=== PATIENT | male | born 1965 | race American Indian/Alaskan Native ===

== ENCOUNTER 2018-09-12 03:19 | Emergency (ER) | payer MEDICARE | END 2018-09-12 04:00 | disposition left against medical advice (07) | LOC: ED 03:19 ==

== ENCOUNTER 2020-06-02 01:15 | Emergency (ER) | payer MEDICARE ==
[2020-06-02 02:20] VITALS: BP 168/88
[2020-06-02 03:06] LABS: Bilirubin,Urine NEG (Negative); Blood,Urine NEG (Negative); Color,Urine Yellow (Yellow); Mucus,Urine FEW /HPF; Protein,Urine <15 mg/dL mg/dL (Negative); RBC,Urine < 1.0 /HPF (0.0-6.0); Urobilinogen,Urine < 2.0 mg/dL (<2.0)
[2020-06-02 03:12] LABS: Amphetamine Screen,Urine PRESUMPTIVE NEGATIVE; Benzodiazepines Screen,Urine PRESUMPTIVE NEGATIVE; Cannabinoid Screen,Urine PRESUMPTIVE NEGATIVE; Cocaine Screen,Urine PRESUMPTIVE NEGATIVE; Methadone Screen,Urine PRESUMPTIVE NEGATIVE; Opiate Screen,Urine PRESUMPTIVE NEGATIVE
[2020-06-02 03:34] LABS: Basophils % (Auto) 0.5 % (0.0-1.8); Eosinophils # (Auto) 0.1 K/mm3 (0.0-0.4); Eosinophils % (Auto) 0.8 % (0.0-4.3); Hematocrit 40.9 % (35.5-45.6); Hemoglobin 13.8 gm/dl (11.8-15.2); Lymphocytes # (Auto) 1.7 K/mm3 (1.2-5.4); Lymphocytes % (Auto) 22.2 % (13.4-35.0); Mean Corpuscular HGB Conc 34 % (32-34); Mean Corpuscular Volume 90 fl (84-94); Monocytes # (Auto) 0.6 K/mm3 (0.0-0.8); Monocytes % (Auto) 8.3 % (0.0-7.3); Platelet Count 194 K/mm3 (140-440); Red Blood Count 4.52 M/mm3 (3.65-5.03); Red Cell Distribution Width 14.7 % (13.2-15.2)
[2020-06-02 03:53] LABS: BUN/Creatinine Ratio 12; Blood Urea Nitrogen 13 mg/dL (9-20); Calcium 9.6 mg/dL (8.4-10.2); Hemolysis Index 10
== END 2020-06-02 06:04 | disposition left against medical advice (07) ==
LOC: ED 01:15
DX: Z00.8 Encounter for other general examination (principal); Z53.21 Procedure and treatment not carried out due to patient leaving prior to being seen by health care provider
CPT/HCPCS: 36415; 80048; 80307; 80320; 81001; 85025; G0480

== ENCOUNTER 2020-06-04 10:08 | Emergency (ER) | payer MEDICARE ==
[2020-06-04] MEDS ORDERED: LORazepam 2 MG/ML VIAL IM ONE (10:49)
[2020-06-04] MEDS ORDERED: ZIPRASIDONE MESYLATE 20 MG VIAL IM ONE (10:49)
--- NOTE | 2020-06-04 10:55 | Emergency Department Report ---
ED Psych HPI - General Chief Complaint: Psych Stated Complaint: HYPERTENSION Time Seen by Provider: 06/04/20 10:37 Source: patient, EMS Mode of arrival: Stretcher - History of Present Illness Initial Comments: 55-year-old male states he has been noncompliant with his medication for several months. He mentioned something about getting out of [facility] at triage. He stated "I just want to harm enemies". He told me that he is tired of seeing demons. He stated that he wanted to go to the [facility] but he knew that "every hospital has its psych floor, so it does not matter". He then informed me that he would need me to show him my "certificate" before I "used that stethoscope". Patient is considerably paranoid. He is apparently homeless. He is not providing much other information. He states his previous medications were "Haldol, Resporal and lithium". He is placed on a 1013. Complaint: other (Homicidal statements) -: unknown Associated Psychiatric Symptoms: homicidal ideation, auditory hallucinations, delusions History of same: Yes Quality: intermittent Improves With: none Worsens With: medication (Presumably) Associated Symptoms: other (Had no physical complaints) Treatments Prior to Arrival: none If Self Harm: other - Related Data Home Medications Medication Instructions Recorded Confirmed Last Taken [place] 3 mg PO DAILY 06/04/20 06/04/20 Unknown Prolixin 2 mg PO DAILY 06/04/20 06/04/20 Unknown haloperidoL [Haldol] 2 mg PO DAILY 06/04/20 06/04/20 Unknown Allergies Allergy/AdvReac Type Severity Reaction Status Date / Time No Known Allergies Allergy Unverified 09/12/18 03:50 ED Review of Systems ROS: Stated complaint: HYPERTENSION Other details as noted in HPI Comment: Unobtainable due to pts medical conditions (No active physical complaints) ED Past Medical Hx - Past Medical History Previous Medical History?: Yes Hx Hypertension: Yes Hx Psychiatric Treatment: Yes (Bipolar, Schizophrenia) - Surgical History Past Surgical History?: No - Social History Smoking Status: Current Every Day Smoker Substance Use Type: Alcohol, Marijuana - Medications Home Medications: Home Medications Medication Instructions Recorded Confirmed Last Taken Type [place] 3 mg PO DAILY 06/04/20 06/04/20 Unknown History Prolixin 2 mg PO DAILY 06/04/20 06/04/20 Unknown History haloperidoL [Haldol] 2 mg PO DAILY 06/04/20 06/04/20 Unknown History ED Physical Exam - General Limitations: Other General appearance: other (Eating a candy bar in no distress) - Head Head exam: Present: atraumatic - Eye Eye exam: Present: PERRL, EOMI. Absent: scleral icterus - ENT ENT exam: Present: mucous membranes moist - Neck Neck exam: Present: normal inspection - Respiratory Respiratory exam: Present: other (Normal work of breathing) - GI/Abdominal GI/Abdominal exam: Absent: distended - Extremities Exam Extremities exam: Present: normal inspection - Back Exam Back exam: Present: normal inspection - Neurological Exam Neurological exam: Present: alert, CN II-XII intact (On observational exam). Absent: motor sensory deficit - Psychiatric Psychiatric exam: Present: agitated, anxious - Skin Skin exam: Present: warm, dry, intact, normal color. Absent: rash ED Course Vital Signs 06/04/20 10:27 Temperature 97.3 F L Pulse Rate 66 Respiratory 16 Rate Blood Pressure 160/78 [Left] O2 Sat by Pulse 100 Oximetry ED Medical Decision Making - Lab Data Result diagrams: 06/04/20 11:00 06/04/20 11:00 Laboratory Results - last 24 hr 06/04/20 06/04/20 06/04/20 11:00 11:00 11:00 WBC 4.9 RBC 4.55 Hgb 14.2 Hct 42.0 MCV 92 MCH 31 MCHC 34 RDW 14.5 Plt Count 185 Lymph % (Auto) 28.0 [place] % (Auto) 8.2 H Eos % (Auto) 2.6 Baso % (Auto) 1.0 Lymph # (Auto) 1.4 [place]yer # (Auto) 0.4 Eos # (Auto) 0.1 Baso # (Auto) 0.0 Seg Neutrophils % 60.2 Seg Neutrophils # 3.0 Sodium 144 Potassium 4.2 Chloride 106.3 Carbon Dioxide 29 Anion Gap 13 BUN 15 Creatinine 1.0 Estimated GFR > 60 BUN/Creatinine Ratio 15 Glucose 85 Calcium 9.3 Total Creatine Kinase CK-MB (CK-2) CK-MB (CK-2) Rel Index Urine Color Urine Turbidity Urine pH Ur Specific Plaza Urine Protein Urine Glucose (UA) Urine Ketones Urine Blood Urine Nitrite Urine Bilirubin Urine Urobilinogen Ur Leukocyte Esterase Urine WBC (Auto) Urine RBC (Auto) U Epithel Cells (Auto) Urine Mucus Salicylates < 0.3 L Urine Opiates Screen Urine Methadone Screen Acetaminophen Ur Barbiturates Screen Ur Phencyclidine Scrn Ur Amphetamines Screen U Benzodiazepines Scrn Urine Cocaine Screen U Marijuana (THC) Screen Drugs of Abuse Note 06/04/20 06/04/20 06/04/20 11:00 11:00 Unknown WBC RBC Hgb Hct MCV MCH MCHC RDW Plt Count Lymph % (Auto) Sawyer % (Auto) Eos % (Auto) Baso % (Auto) Lymph # (Auto) Sawyer # (Auto) Eos # (Auto) Baso # (Auto) Seg Neutrophils % Seg Neutrophils # Sodium Potassium Chloride Carbon Dioxide Anion Gap BUN Creatinine Estimated GFR BUN/Creatinine Ratio Glucose Calcium Total Creatine Kinase 392 H CK-MB (CK-2) 4.0 CK-MB (CK-2) Rel Index 1.0 Urine Color Yellow Urine Turbidity Clear Urine pH 5.0 Ur [address] Plaza 1.028 Urine Protein 30 mg/dl Urine Glucose (UA) Neg Urine Ketones Neg Urine Blood Neg Urine Nitrite Neg Urine Bilirubin Neg Urine Urobilinogen 4.0 Ur Leukocyte Esterase Neg Urine WBC (Auto) 1.0 Urine RBC (Auto) 4.0 U Epithel Cells (Auto) 2.0 Urine Mucus Few Salicylates Urine Opiates Screen Urine Methadone Screen Acetaminophen 5.0 L Ur Barbiturates Screen Ur Phencyclidine Scrn Ur Amphetamines Screen U Benzodiazepines Scrn Urine Cocaine Screen U Marijuana (THC) Screen Drugs of Abuse Note 06/04/20 Unknown WBC RBC Hgb Hct MCV MCH MCHC RDW Plt Count Lymph % (Auto) [place]yer % (Auto) Eos % (Auto) Baso % (Auto) Lymph # (Auto) [place]yer # (Auto) Eos # (Auto) Baso # (Auto) Seg Neutrophils % Seg Neutrophils # Sodium Potassium Chloride Carbon Dioxide Anion Gap BUN Creatinine Estimated GFR BUN/Creatinine Ratio Glucose Calcium Total Creatine Kinase CK-MB (CK-2) CK-MB (CK-2) Rel Index Urine Color Urine Turbidity Urine pH Ur Specific Plaza Urine Protein Urine Glucose (UA) Urine Ketones Urine Blood Urine Nitrite Urine Bilirubin Urine Urobilinogen Ur Leukocyte Esterase Urine WBC (Auto) Urine RBC (Auto) U Epithel Cells (Auto) Urine Mucus Salicylates Urine Opiates Screen Negative Urine Methadone Screen Negative Acetaminophen Ur Barbiturates Screen Negative Ur Phencyclidine Scrn Negative Ur Amphetamines Screen Negative U Benzodiazepines Scrn Negative Urine Cocaine Screen Negative U Marijuana (THC) Screen Negative Drugs of Abuse Note Disclamer Critical care attestation.: If time is entered above; I have spent that time in minutes in the direct care of this critically ill patient, excluding procedure time. ED Disposition Clinical Impression: Acute psychosis, Medical clearance for psychiatric admission Disposition: DC/TX-65 PSY HOSP/PSY UNIT Is pt being admited?: No Does the pt Need Aspirin: No Condition: Stable Time of Disposition: 13:05
[2020-06-04 11:12] LABS: Bilirubin,Urine NEG (Negative); Blood,Urine NEG (Negative); Color,Urine Yellow (Yellow); Mucus,Urine FEW /HPF
[2020-06-04 11:26] LABS: Eosinophils # (Auto) 0.1 K/mm3 (0.0-0.4); Eosinophils % (Auto) 2.6 % (0.0-4.3); Hemoglobin 14.2 gm/dl (11.8-15.2); Lymphocytes # (Auto) 1.4 K/mm3 (1.2-5.4); Mean Corpuscular HGB Conc 34 % (32-34); Mean Corpuscular Volume 92 fl (84-94); Monocytes # (Auto) 0.4 K/mm3 (0.0-0.8); Monocytes % (Auto) 8.2 % (0.0-7.3); Platelet Count 185 K/mm3 (140-440); Red Blood Count 4.55 M/mm3 (3.65-5.03); Red Cell Distribution Width 14.5 % (13.2-15.2)
[2020-06-04 11:26] LABS: Amphetamine Screen,Urine Negative; Benzodiazepines Screen,Urine Negative; Cannabinoid Screen,Urine Negative; Cocaine Screen,Urine Negative; Methadone Screen,Urine Negative; Opiate Screen,Urine Negative
[2020-06-04 11:36] LABS: BUN/Creatinine Ratio 15; Blood Urea Nitrogen 15 mg/dL (9-20); Calcium 9.3 mg/dL (8.4-10.2); Hemolysis Index 14
[2020-06-04] MEDS ORDERED: ALUM-MAG HYDROXIDE-SIMETHICONE 200-200-20MG/5ML ORAL LIQD 30 ML PO PRN (13:10)
[2020-06-04] MEDS ORDERED: MAGNESIUM HYDROXIDE (MOM) ORAL LIQD UDC PO PRN (13:10)
[2020-06-04] MEDS ORDERED: ACETAMINOPHEN 325 MG TAB PO PRN (13:10)
[2020-06-04] MEDS: BENZTROPINE 1 MG TAB PO SCH (23:26)
[2020-06-04] MEDS: HALOPERIDOL 5 MG TAB PO SCH (23:27)
--- NOTE | 2020-06-05 10:34 | Consultation ---
History of Present Illness - Reason for Consult Consult date: 06/05/20 Reason for consult: SI, A/V hallucinations - History of Present Psychiatric Illness Dg Ho is a 55y/o male patient who presented to the ER with paranoia, homicidal ideation and hallucinations. During my interview with the patient, he is lying down. He verbalizes being suicidal. He says he is seeing "the enemy at war." The patient also verbalizes "hearing voices that I can't make out." He then says, "they are talking about guns and knives." He says he was diagnosed with "schizophrenia." He says he hasn't been on any meds for months. The patient says he takes "lithium and prolixin." He denies having a suicide attempt in the past. He says he's been admitted once. He denies any illicit drug use, alcohol. He says he smokes "a cigar a day." PAST PSYCHIATRIC HISTORY Diagnoses: schizophrenia Suicide attempts or Self-harm behavior: denies Prior psychiatric hospitalizations: Yes Substance Abuse history: Nicotine Previous psychiatric medications tried: lithium and prolixin Outpatient treatment: not currently PAST MEDICAL HISTORY: none reported Family Psychiatric History: None reported or documented SOCIAL HISTORY Marital Status: Single Living Arrangements: Homeless Employment Status: Retired Vet Access to guns/weapons: None reported Education: high school grad History of Abuse: None reported Legal History: Denies REVIEW OF SYSTEMS Constitutional: Negative for weight loss ENT: Negative for stridor Respiratory: Negative for cough or hemoptysis All other systems reviewed and are negative MENTAL STATUS EXAMINATION General Appearance: Dressed appropriately. Behavior: calm and Cooperative Mood: "depressed" Affect: Congruent with stated mood Speech: Normal tone, and pace Thought Process: Goal directed Suicidal Ideation: Yes Homicidal Ideation: Denies Hallucinations: Auditory Delusions: Yes Insight and Judgment: Limited Memory/Cognition: Limited ASSESSMENT Schizoaffective Disorder TREATMENT PLAN 101[address] 125mg po BID Trazodone 50mg po qhs Nicotine patch 14mg daily Sitter: Defer to primary Medical: Per primary Disposition: Recommend acute inpatient psychiatric treatment Will follow. Thank you for this consult. Medications and Allergies Allergies Allergy/AdvReac Type Severity Reaction Status Date / Time No Known Allergies Allergy Unverified 09/12/18 03:50 Home Medications Medication Instructions Recorded Confirmed Last Taken Type [place] 3 mg PO DAILY 06/04/20 06/04/20 Unknown History Prolixin 2 mg PO DAILY 06/04/20 06/04/20 Unknown History haloperidoL [Haldol] 2 mg PO DAILY 06/04/20 06/04/20 Unknown History Active Meds: Active Medications Acetaminophen (Tylenol) 650 mg PO Q4HR PRN PRN Reason: Pain MILD(1-3)/Fever >100.5/THEODORE Al Hydrox/Mg Hydrox/Simethicone (Alum-Mag Hydrox-Simeth [id number]/5ml) 30 ml PO Q4HR PRN PRN Reason: Indigestion Benztropine Mesylate (Cogentin) 1 mg PO BID [facility] Last Admin: 06/04/20 23:26 Dose: 1 mg Documented by: Haloperidol (Haldol) 5 mg PO BID [facility] Last Admin: 06/04/20 23:27 Dose: 5 mg Documented by: Magnesium Hydroxide (Milk Of Magnesia) 30 ml PO Q12HR PRN PRN Reason: Constipation Mental Status Exam - Vital signs Last Vital Signs Temp 98.0 F 06/05/20 07:50 Pulse 84 06/05/20 07:50 Resp 20 06/05/20 07:50 BP 142/75 06/05/20 07:50 Pulse Ox 100 06/05/20 07:50 Results Result Diagrams: 06/04/20 11:00 06/04/20 11:00 Abnormal lab results 06/04/20 06/04/20 06/04/20 Range/Units 11:00 11:00 11:00 Henry % (Auto) 8.2 H (0.0-7.3) % Total Creatine Kinase (55-170) units/L Salicylates < 0.3 L (2.8-20.0) mg/dL Acetaminophen 5.0 L (10.0-30.0) ug/mL 06/04/20 Range/Units 11:00 [place] % (Auto) (0.0-7.3) % Total Creatine Kinase 392 H (55-170) units/L Salicylates (2.8-20.0) mg/dL Acetaminophen (10.0-30.0) ug/mL All other labs normal.
[2020-06-05] MEDS: BENZTROPINE 1 MG TAB PO SCH (11:00)
[2020-06-05] MEDS ORDERED: NICOTINE 14 MG/24 HR PATCH TD SCH (11:00)
[2020-06-05] MEDS ORDERED: DIVALPROEX DR 125 MG TAB PO SCH (11:00)
[2020-06-05] MEDS: HALOPERIDOL 5 MG TAB PO SCH (11:00)
[2020-06-05 19:48] VITALS: BP 146/75
[2020-06-05] MEDS ORDERED: traZODone 50 MG TAB PO SCH (22:00)
== END 2020-06-05 19:54 ==
LOC: ED 10:08
DX: F23 Brief psychotic disorder (principal); Z04.6 Encounter for general psychiatric examination, requested by authority; I10 Essential (primary) hypertension; F17.200 Nicotine dependence, unspecified, uncomplicated; F12.10 Cannabis abuse, uncomplicated; Z79.899 Other long term (current) drug therapy
CPT/HCPCS: 36415; 80048; 80164; 80307; 81001; 82550; 82553; 85025; 96372; 99285; J2060; J3486; U0003; 80320; G0480

== ENCOUNTER 2020-06-05 16:06 | Inpatient (IN) | payer MEDICARE ==
[2020-06-05] MEDS: traZODone 50 MG TAB PO SCH (22:55)
--- NOTE | 2020-06-06 10:55 | History and Physical Report ---
GP History & Physical - History of Present Illness Date of admission: 06/05/20 Date of Examination: 06/06/20 Reason for Admission: Danger to self, Failure of Outpatient Treatment History of Present Illness: gD Ho is a 55y/o male patient who presented to the ER with paranoia, homicidal ideation and hallucinations. I first saw this patient yesterday in the ER. During my interview with the patient today, he is awake, a/o x 3. He says he's been off his medications. The patient verbalizes being "a little suicidal but not like it was yesterday." He says he has hallucinations of seeing "war vets." He says he was diagnosed with "schizophrenia." He says he hasn't been on any meds for months. The patient says he takes "lithium and prolixin." He denies having a suicide attempt in the past. He says he's been admitted once. He denies any illicit drug use, alcohol. He says he smokes "a cigar a day." PAST PSYCHIATRIC HISTORY Diagnoses: schizophrenia Suicide attempts or Self-harm behavior: denies Prior psychiatric hospitalizations: Yes Substance Abuse history: Nicotine Previous psychiatric medications tried: lithium and prolixin Outpatient treatment: not currently PAST MEDICAL HISTORY: none reported Family Psychiatric History: None reported or documented SOCIAL HISTORY Marital Status: Single Living Arrangements: Homeless Employment Status: Retired Vet Access to guns/weapons: None reported Education: high school grad History of Abuse: None reported Legal History: Denies REVIEW OF SYSTEMS Constitutional: Negative for weight loss ENT: Negative for stridor Respiratory: Negative for cough or hemoptysis All other systems reviewed and are negative MENTAL STATUS EXAMINATION General Appearance: Dressed appropriately. Behavior: calm and Cooperative Mood: "depressed" Affect: Congruent with stated mood Speech: Normal tone, and pace Thought Process: Goal directed Suicidal Ideation: Yes Homicidal Ideation: Denies Hallucinations: Auditory Delusions: Yes Insight and Judgment: Limited Memory/Cognition: Limited ASSESSMENT Schizophrenia Treatment Plan Patient admitted for inpatient psychiatric evaluation, medication adjustment and close monitoring The patient's behavior, mood, sleep and appetite will be closely monitored. Patient enrolled in individual and group therapeutic sessions and encouraged to attend. Patient provided with a safe and structured environment. Patient's physical health needs will be addressed by the Hospitalist. Hospitalist Consulted Labs including CBC, CMP, Lipid profile and Hemoglobin A1C levels ordered for baseline reference Depakote DR 125mg po BID Haldol 2mg po BID Cogentin 0.5ng po daily Trazodone 50mg po qhs Social Assessment will be completed and the Manager Sourcing will work with patient and family to ensure a suitable and safe disposition Medication adjustment will be made as clinically indicated Usual Wellness Faith/Preservation: - Start Trazodone 50 mg po QHS & 50 mg po QHS PRN between 10 PM & 2 AM for insomnia - Start Melatonin 5 mg po QHS to promote circadian rhythm - Start [place]-3 for brain health, reduce impulsivity, and as adjunctive treatment for mood disorder, continue upon discharge given overall benefits. - Start B1 prophylaxis with 200 mg po for 5 days Estimated days: 5 Post hospital care: primary care provider, psychiatric provider Legal Status: Voluntary Reaction to Hospitalization: Accepting Medications and Allergies Allergies Allergy/AdvReac Type Severity Reaction Status Date / Time No Known Allergies Allergy Unverified 09/12/18 03:50 Home Medications Medication Instructions Recorded Confirmed Last Taken Type [place] 3 mg PO DAILY 06/04/20 06/06/20 Unknown History Prolixin 2 mg PO DAILY 06/04/20 06/06/20 Unknown History haloperidoL [Haldol] 2 mg PO DAILY 06/04/20 06/06/20 Unknown History Active Meds: Active Medications Trazodone HCl (Desyrel) 50 mg PO QHS [facility] Last Admin: 06/05/20 22:55 Dose: 50 mg Documented by: Results - Results Labs/Vitals: Laboratory Last Values POC Glucose 112 mg/dL (70-105) H 06/05/20 22:43 TSH 0.057 mlU/mL (0.270-4.200) L 06/06/20 Unknown Last Vital Signs Temp 98.4 F 06/06/20 09:03 Pulse 64 06/06/20 09:03 Resp 18 06/06/20 09:03 BP 135/71 06/06/20 09:03 Pulse Ox 99 06/06/20 09:03 Physical Examination - Constitutional Vitals: Vital Signs Temp Pulse Resp BP Pulse Ox 98.4 F 64 18 135/71 99 06/06/20 09:03 06/06/20 09:03 06/06/20 09:03 06/06/20 09:03 06/06/20 09:03 Temperature -Last 24 Hours Temperature 98.4 F Temperature 97.6 F Mental Status Exam - Vital signs Last Vital Signs Temp 98.4 F 06/06/20 09:03 Pulse 64 06/06/20 09:03 Resp 18 06/06/20 09:03 BP 135/71 06/06/20 09:03 Pulse Ox 99 06/06/20 09:03 Physician Certification - Certification Statement Physician Certification Statement: This is an acknowledgement statement that DG HO is a 55 year old M who requires inpatient psychiatric admission for treatment which could reasonably be expected to improve the patient's condition for Estimated period of time patient will need to remain in the hospital: [ ] Plan for post-hospital care: [ ]
[2020-06-06] MEDS: HALOPERIDOL 2 MG TAB PO SCH ×2 (11:40→22:24)
[2020-06-06] MEDS: BENZTROPINE 0.5 MG TAB PO SCH (11:40)
[2020-06-06] MEDS: DIVALPROEX DR 125 MG TAB PO SCH ×2 (11:41→22:24)
--- NOTE | 2020-06-06 17:55 | Consultation ---
History of Present Illness - Reason for Consult Consult date: 06/06/20 Medical management Requesting physician: INDIA CRYSTAL - History of Present Illness Patient is a 55-year-old male with no significant past medical history and no allergies except for her psych history of schizophrenia who presents to the hospital due to noncompliance with meds and months. Per the patient he just got out of residential and wants to harm his enemies "seeing demons paranoid and also home less. Physically patient with paranoid homicidal ideation or hallucination were asked to help assist in management of the patient on evaluation for any medical condition. He denies any chest pain nausea vomiting or diarrhea. He does not recall medications that he takes at home. He also tells me that he is a smoker. He also mentions use of crack cocaine in the past but did not want to elaborate. States that he does not do it anymore Past History Past Medical History: other (Substance use disorder) Past Surgical History: No surgical history Social history: no significant social history, alcohol abuse, full code, other (Substance abuse). denies: smoking Family history: no significant family history Medications and Allergies Allergies Allergy/AdvReac Type Severity Reaction Status Date / Time No Known Allergies Allergy Unverified 09/12/18 03:50 Home Medications Medication Instructions Recorded Confirmed Last Taken Type [place] 3 mg PO DAILY 06/04/20 06/06/20 Unknown History Prolixin 2 mg PO DAILY 06/04/20 06/06/20 Unknown History haloperidoL [Haldol] 2 mg PO DAILY 06/04/20 06/06/20 Unknown History Active Meds: Active Medications Benztropine Mesylate (Cogentin) 0.5 mg PO DAILY [facility] Last Admin: 06/06/20 11:40 Dose: 0.5 mg Documented by: Divalproex Sodium (Depakote Dr) 125 mg PO BID [facility] Last Admin: 06/06/20 11:41 Dose: 125 mg Documented by: Haloperidol (Haldol) 2 mg PO BID [facility] Last Admin: 06/06/20 11:40 Dose: 2 mg Documented by: Trazodone HCl (Desyrel) 50 mg PO QHS [facility] Last Admin: 06/05/20 22:55 Dose: 50 mg Documented by: Review of Systems All systems: negative Constitutional: no weight gain, no fever, no chills, no night sweats Cardiovascular: no chest pain, no palpitations, no rapid/irregular heart beat, no edema, no syncope, no lightheadedness, no shortness of breath Respiratory: no cough, no cough with sputum, no excessive sputum, no hemoptysis, no shortness of breath Exam - Physical Exam Narrative exam: VITAL SIGNS: Reviewed. GENERAL: The patient appears normally developed, somewhat withdrawn. Vital signs as documented. HEAD: No signs of head trauma. EYES: Pupils are equal. Extraocular motions intact. EARS: Hearing grossly intact. MOUTH: Oropharynx is normal. NECK: No adenopathy, no JVD. CHEST: Chest with clear breath sounds bilaterally. No wheezes, rales, or rhonchi. CARDIAC: Regular rate and rhythm. S1 and S2, without murmurs, gallops, or rubs. VASCULAR: No Edema. Peripheral pulses normal and equal in all extremities. ABDOMEN: Soft, non tender and non distended. No rebound or guarding, and no masses palpated. Bowel Sounds normal. MUSCULOSKELETAL: Good range of motion of all major joints. Extremities without clubbing, cyanosis or edema. NEUROLOGIC EXAM: Alert and oriented x 3 No focal sensory or strength deficits. Speech normal. Follows commands. PSYCHIATRIC: Mood normal. SKIN: detail exam as documented in skin assessment - Constitutional Vitals: Temp Pulse Resp BP Pulse Ox 98.4 F 64 18 135/71 99 06/06/20 09:03 06/06/20 09:03 06/06/20 09:03 06/06/20 09:03 06/06/20 09:03 Results - Labs Labs: Abnormal lab results 06/05/20 06/06/20 Range/Units 22:43 Unknown POC Glucose 112 H (70-105) mg/dL TSH 0.057 L (0.270-4.200) mlU/mL Assessment and Plan 55-year-old male being admitted with paranoid and homicidal ideation or hallucination with no significant past medical history except for remote use of crack cocaine per the patient. Elevated blood pressure without diagnosis of hypertension Schizophrenia Remote drug use disorder Plan Continue management as placed by psych. Counseling provided to the patient 50 minutes on substance use disorder. Please reconsult if needed for any developing symptoms. Continue to monitor blood pressure is mildly elevated this may be due to agita tion
[2020-06-06] MEDS: traZODone 50 MG TAB PO SCH (22:24)
[2020-06-07] MEDS: BENZTROPINE 0.5 MG TAB PO SCH (10:03)
[2020-06-07] MEDS: HALOPERIDOL 2 MG TAB PO SCH (10:03)
[2020-06-07] MEDS: DIVALPROEX DR 125 MG TAB PO SCH ×2 (10:03→21:21)
--- NOTE | 2020-06-07 11:26 | Progress Note ---
Subjective Date of service: 06/07/20 Principal diagnosis: Schizophrenia Subjective Comment: During my interview with the patient today he is laughing inappropriately. He is bouncing around. 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 He laughs out loud and states "I guess they can't come up." The patient denies SI/HI at present. He says "I'm doing okay." He then starts smiling. REVIEW OF SYSTEMS Constitutional: Negative for weight loss ENT: Negative for stridor Respiratory: Negative for cough or hemoptysis All other systems reviewed and are negative MENTAL STATUS EXAMINATION General Appearance: Dressed appropriately. Behavior: hyperactive Mood: "okay" Affect: smiles and laughs inappropriately Speech: Normal tone, and pace Thought Process: Goal directed Suicidal Ideation: Denies Homicidal Ideation: Denies Hallucinations: Visual Delusions: Yes Insight and Judgment: Limited Memory/Cognition: Limited ASSESSMENT Schizophrenia Treatment Plan Patient admitted for inpatient psychiatric evaluation, medication adjustment and close monitoring The patient's behavior, mood, sleep and appetite will be closely monitored. Patient enrolled in individual and group therapeutic sessions and encouraged to attend. Patient provided with a safe and structured environment. Patient's physical health needs will be addressed by the Hospitalist. Hospitalist Consulted Labs including CBC, CMP, Lipid profile and Hemoglobin A1C levels ordered for alida vela reference Increase Haldol 5mg po BID Social Assessment will be completed and the [employer] Supervisor will work with patient and family to ensure a suitable and safe disposition Medication adjustment will be made as clinically indicated Usual Wellness Mandaeism/Preservation: - Start Trazodone 50 mg po QHS & 50 mg po QHS PRN between 10 PM & 2 AM for insomnia - Start Melatonin 5 mg po QHS to promote circadian rhythm - Start [place]-3 for brain health, reduce impulsivity, and as adjunctive treatment for mood disorder, continue upon discharge given overall benefits. - Start B1 prophylaxis with 200 mg po for 5 days Estimated days: 5 Post hospital care: primary care provider, psychiatric provider Medications and Allergies Allergies Allergy/AdvReac Type Severity Reaction Status Date / Time No Known Allergies Allergy Unverified 09/12/18 03:50 Home Medications Medication Instructions Recorded Confirmed Last Taken Type [place] 3 mg PO DAILY 06/04/20 06/06/20 Unknown History Prolixin 2 mg PO DAILY 06/04/20 06/06/20 Unknown History haloperidoL [Haldol] 2 mg PO DAILY 06/04/20 06/06/20 Unknown History Active Meds: Active Medications Benztropine Mesylate (Cogentin) 0.5 mg PO DAILY [facility] Last Admin: 06/07/20 10:03 Dose: 0.5 mg Documented by: Divalproex Sodium (Depakote Dr) 125 mg PO BID [facility] Last Admin: 06/07/20 10:03 Dose: 125 mg Documented by: Haloperidol (Haldol) 2 mg PO BID [facility] Last Admin: 06/07/20 10:03 Dose: 2 mg Documented by: Trazodone HCl (Desyrel) 50 mg PO QHS [facility] Last Admin: 06/06/20 22:24 Dose: 50 mg Documented by: Results - Results Labs/Vitals: Laboratory Last Values POC Glucose 112 mg/dL (70-105) H 06/05/20 22:43 TSH 0.057 mlU/mL (0.270-4.200) L 06/06/20 Unknown Last Vital Signs Temp 98.4 F 06/07/20 08:38 Pulse 67 06/07/20 08:38 Resp 18 06/07/20 08:38 BP 165/77 06/07/20 08:38 Pulse Ox 98 06/07/20 08:38
[2020-06-07] MEDS: HALOPERIDOL 5 MG TAB PO SCH (21:21)
[2020-06-07] MEDS: traZODone 50 MG TAB PO SCH (21:21)
--- NOTE | 2020-06-08 08:14 | Progress Note ---
Subjective Date of service: 06/08/20 Principal diagnosis: Schizophrenia Subjective Comment: The patient's medical record was reviewed and the patient's progress was discussed with the nursing staff. The nurse note states the patient was observed talking to himself. During my interview with the patient today he is walking to the dayroom. He is calm and cooperative. He is laughing. He is delusional. He states he's "doing alright." The patient is also observed talking to himself. When asked who was he talking to, he states "I was just answering your question." The patient denies SI/HI. He also denies hallucinations. He states "I haven't heard from my vet buddies." He then says "I'm up so high, they are down low and can't fly up here." Reason for continued inpatient treatment: The patient continues to hallucinate and be delusional REVIEW OF SYSTEMS Constitutional: Negative for weight loss ENT: Negative for stridor Respiratory: Negative for cough or hemoptysis All other systems reviewed and are negative MENTAL STATUS EXAMINATION General Appearance: Dressed appropriately. Behavior: hyperactive Mood: "okay" Affect: smiles and laughs inappropriately Speech: Normal tone, and pace Thought Process: Goal directed Suicidal Ideation: Denies Homicidal Ideation: Denies Hallucinations: Visual Delusions: Yes Insight and Judgment: Limited Memory/Cognition: Limited ASSESSMENT Schizophrenia Treatment Plan Patient admitted for inpatient psychiatric evaluation, medication adjustment and close monitoring The patient's behavior, mood, sleep and appetite will be closely monitored. Patient enrolled in individual and group therapeutic sessions and encouraged to attend. Patient provided with a safe and structured environment. Patient's physical health needs will be addressed by the Hospitalist. Hospitalist Consulted Labs including CBC, CMP, Lipid profile and Hemoglobin A1C levels ordered for baseline reference Social Assessment will be completed and the Tool Radial Drill Press Set Up Operator will work with patient and family to ensure a suitable and safe disposition Medication adjustment will be made as clinically indicated Increase Haldol 5mg po BID yesterday Increased Depakote DR 125mg po BID Usual Wellness Sabianism/Preservation: - Start Trazodone 50 mg po QHS & 50 mg po QHS PRN between 10 PM & 2 AM for insomnia - Start Melatonin 5 mg po QHS to promote circadian rhythm - Start [place]-3 for brain health, reduce impulsivity, and as adjunctive treatment for mood disorder, continue upon discharge given overall benefits. - Start B1 prophylaxis with 200 mg po for 5 days Estimated days: 5 Post hospital care: primary care provider, psychiatric provider Medications and Allergies Allergies Allergy/AdvReac Type Severity Reaction Status Date / Time No Known Allergies Allergy Unverified 09/12/18 03:50 Home Medications Medication Instructions Recorded Confirmed Last Taken Type [place] 3 mg PO DAILY 06/04/20 06/06/20 Unknown History Prolixin 2 mg PO DAILY 06/04/20 06/06/20 Unknown History haloperidoL [Haldol] 2 mg PO DAILY 06/04/20 06/06/20 Unknown History Active Meds: Active Medications Benztropine Mesylate (Cogentin) 0.5 mg PO DAILY [facility] Last Admin: 06/07/20 10:03 Dose: 0.5 mg Documented by: Haloperidol (Haldol) 5 mg PO BID [facility] Last Admin: 06/07/20 21:21 Dose: 5 mg Documented by: Trazodone HCl (Desyrel) 50 mg PO QHS [facility] Last Admin: 06/07/20 21:21 Dose: 50 mg Documented by: Results - Results Labs/Vitals: Laboratory Last Values POC Glucose 112 mg/dL (70-105) H 06/05/20 22:43 TSH 0.057 mlU/mL (0.270-4.200) L 06/06/20 Unknown Last Vital Signs Temp 98.7 F 06/07/20 19:48 Pulse 59 L 06/07/20 19:48 Resp 16 06/07/20 19:48 BP 152/61 06/07/20 19:48 Pulse Ox 97 06/07/20 19:48
[2020-06-08] MEDS: HALOPERIDOL 5 MG TAB PO SCH ×2 (09:31→21:12)
[2020-06-08] MEDS: BENZTROPINE 0.5 MG TAB PO SCH (09:31)
[2020-06-08] MEDS: DIVALPROEX DR 250 MG TAB PO SCH ×2 (09:31→21:12)
--- NOTE | 2020-06-08 12:12 | Progress Note ---
Assessment and Plan - Patient Problems (1) EtOH dependence Current Visit: Yes Status: Acute Qualifiers: Substance use status: uncomplicated Qualified Code(s): F10.20 - Alcohol dependence, uncomplicated Plan to address problem: Thiamine, folic acid, multivitamin, no signs of alcohol withdrawal at this time. (2) Acute psychosis Current Visit: No Status: Acute Plan to address problem: Supportive care, continue medical management as per primary team. History Interval history: 55 YO Male Schizophrenia, ETOH Dependence admitted to [facility] for Psychiatric stabilization. Patient seen and evaluated in his room. Patient resting comfortably. Patient denies pain. No reported nursing events. Patient denies tremors, auditory or visual hallucinations. Hospitalist Physical - Constitutional Vitals: Temp Pulse Resp BP Pulse Ox 98.7 F 59 L 16 152/61 97 06/07/20 19:48 06/07/20 19:48 06/07/20 19:48 06/07/20 19:48 06/07/20 19:48 General appearance: Present: no acute distress - EENT Eyes: Present: PERRL ENT: hearing intact - Neck Neck: Present: supple - Respiratory Respiratory effort: normal Respiratory: bilateral: CTA - Cardiovascular Rhythm: regular Heart Sounds: Present: S1 & S2 - Extremities Extremities: no ischemia ( time reviewing the) Peripheral Pulses: within normal limits - Abdominal General gastrointestinal: soft, non-tender, non-distended (Hey which ambulated) - Integumentary Integumentary: Present: clear, warm, erythema - Psychiatric Psychiatric: cooperative - Neurologic Neurologic: CNII-XII intact Results - Labs Labs: Laboratory Last Values POC Glucose 112 mg/dL (70-105) H 06/05/20 22:43 TSH 0.057 mlU/mL (0.270-4.200) L 06/06/20 Unknown [place]/IV: Voiding Method Toilet Active Medications - Current Medications Current Medications: Generic Name Dose Route Start Last Admin Trade Name Freq PRN Reason Stop Dose Admin Benztropine Mesylate 0.5 mg 06/06/20 11:00 06/08/20 09:31 Cogentin PO 0.5 mg DAILY [facility] Administration Divalproex Sodium 250 mg 06/08/20 10:00 06/08/20 09:[address] PO 250 mg BID [facility]INO Administration Haloperidol 5 mg 06/07/20 22:00 06/08/20 09:31 Haldol PO 5 mg BID [facility] Administration Trazodone HCl 50 mg 06/05/20 22:00 06/07/20 21:21 Desyrel PO 50 mg QHS [facility] Administration
[2020-06-08] MEDS: THIAMINE 100 MG TAB PO SCH (14:08)
[2020-06-08] MEDS: MULTIVITAMINS ,THERAPEUTIC TAB PO SCH (14:08)
[2020-06-08] MEDS: FOLIC ACID 1 MG TAB PO SCH (14:08)
[2020-06-08] MEDS: traZODone 50 MG TAB PO SCH (21:12)
--- NOTE | 2020-06-09 07:14 | Progress Note ---
Subjective Date of service: 06/09/20 Principal diagnosis: Schizophrenia Subjective Comment: Per Psych Nurse: Pt calm and cooperative, compliant, participated in group activity. He denies hearing voices, denies SI/HI. Will continue to monitor. pt was present for group and actively engaged for full duration. pt's interaction with peers was positive. pt laughed, smiled, socialized, and was supportive. pt cheered for peers as they scored. pt showed positive/friendly competition. pt enjoyed the music. pt activity of choice was al bag toss. pt really enjoyed group. Psych Progress HPI Patient seen the same she reports doing okay, patient is status right now is not fully awake, but slept really good patient denies any nightmares denies any auditory or visual hallucination, patient says nothing is bothering him at the moment, reportedly has been feeling so much better since he has been here and also endorses improved appetite and sleep. Reason for continuing inpatient treatment: Improved mood stability, patient denies SI HI we will continue to observe for medication tolerance and side effects Review of Symptoms: Constitutional: Negative for weight loss ENT: Negative for stridor Respiratory: Negative for cough or hemoptysis All other systems reviewed and are negative MENTAL STATUS EXAMINATION General Appearance and Behavior: Age appropriate, good hygiene, wearing appropriate clothes, good eye contact, cooperative polite with questioning. Cooperation: Participating/engaged Psychomotor Behavior: unremarkable and within normal limits Mood: Good Affect and affective range: congruent with mood Thought Process: Fluent/Logical, Thought Content: Within reality, Speech: Normal volume, Regular rate and rhythm, Intellectual Functioning: Average Suicidal Ideation: Denies SI Homicidal Ideation: Denies HI Impulse Control: Unimpaired Insight and Judgment: Normal insight and judgment, Memory: Normal, Attention: Normal, Orientation: Alert, oriented, Assessment and Plan - Patient Problems (1) Schizoaffective disorder Current Visit: Yes Status: Acute Treatment Plan Continue current medications Patient admitted for inpatient psychiatric evaluation, medication adjustment and close monitoring The patient's behavior, mood, sleep and appetite will be closely monitored. Patient enrolled in individual and group therapeutic sessions and encouraged to attend. Patient provided with a safe and structured environment. Patient's physical health needs will be addressed by the Hospitalist. Hospitalist Consulted Labs including CBC, CMP, Lipid profile and Hemoglobin A1C levels ordered for baseline reference Social Assessment will be completed and the Wearing Apparel Folder will work with patient and family to ensure a suitable and safe disposition Medication adjustment will be made as clinically indicated Usual Wellness Hinduism/Preservation: - Start Trazodone 50 mg po QHS & 50 mg po QHS PRN between 10 PM & 2 AM for insomnia - Start Melatonin 5 mg po QHS to promote circadian rhythm - Start [place]-3 for brain health, reduce impulsivity, and as adjunctive treatment for mood disorder, continue upon discharge given overall benefits. - Start B1 prophylaxis with 200 mg po for 5 days The patient agreed on the treatment plan, understood the risk, benefit, alternative treatment, potential consequence of no treatment, and gave informed consent. Initial Certification Inpatient psych services: I certify that the inpatient psychiatric services are required for treatment that could reasonably be expected to improve the patient's condition. Estimated days: 3 Post hospital care: primary care provider, psychiatric provider Assessment and Plan - Patient Problems (1) Schizoaffective disorder Current Visit: Yes Status: Acute Medications and Allergies Allergies Allergy/AdvReac Type Severity Reaction Status Date / Time No Known Allergies Allergy Unverified 09/12/18 03:50 Home Medications Medication Instructions Recorded Confirmed Last Taken Type [place] 3 mg PO DAILY 06/04/20 06/06/20 Unknown History Prolixin 2 mg PO DAILY 06/04/20 06/06/20 Unknown History haloperidoL [Haldol] 2 mg PO DAILY 06/04/20 06/06/20 Unknown History Active Meds: Active Medications Benztropine Mesylate (Cogentin) 0.5 mg PO DAILY [facility] Last Admin: 06/08/20 09:31 Dose: 0.5 mg Documented by: Divalproex Sodium (Depakote Dr) 250 mg PO BID [facility] Last Admin: 06/08/20 21:12 Dose: 250 mg Documented by: Folic Acid (Folvite) 1 mg PO QDAY [facility] Last Admin: 06/08/20 14:08 Dose: 1 mg Documented by: Haloperidol (Haldol) 5 mg PO BID [facility] Last Admin: 06/08/20 21:12 Dose: 5 mg Documented by: Multivitamins (Theragran Tab) 1 each PO QDAY [facility] Last Admin: 06/08/20 14:08 Dose: 1 each Documented by: Thiamine HCl (Vitamin B-1) 100 mg PO QDAY [facility] Last Admin: 06/08/20 14:08 Dose: 100 mg Documented by: Trazodone HCl (Desyrel) 50 mg PO QHS [facility] Last Admin: 06/08/20 21:12 Dose: 50 mg Documented by: Results - Results Labs/Vitals: Laboratory Last Values POC Glucose 112 mg/dL (70-105) H 06/05/20 22:43 TSH 0.057 mlU/mL (0.270-4.200) L 06/06/20 Unknown Last Vital Signs Temp 98.7 F 06/07/20 19:48 Pulse 59 L 06/07/20 19:48 Resp 16 06/07/20 19:48 BP 152/61 06/07/20 19:48 Pulse Ox 97 06/07/20 19:48
[2020-06-09] MEDS: THIAMINE 100 MG TAB PO SCH (10:27)
[2020-06-09] MEDS: MULTIVITAMINS ,THERAPEUTIC TAB PO SCH (10:30)
[2020-06-09] MEDS: HALOPERIDOL 5 MG TAB PO SCH ×2 (10:30→21:15)
[2020-06-09] MEDS: BENZTROPINE 0.5 MG TAB PO SCH (10:30)
[2020-06-09] MEDS: DIVALPROEX DR 250 MG TAB PO SCH ×2 (10:31→21:15)
[2020-06-09] MEDS: FOLIC ACID 1 MG TAB PO SCH (10:34)
[2020-06-09] MEDS: traZODone 50 MG TAB PO SCH (21:15)
--- NOTE | 2020-06-10 08:16 | Progress Note ---
Subjective Date of service: 06/10/20 Principal diagnosis: Schizophrenia Subjective Comment: Per Psych Nurse: pt isolates himself to his room, comes to the activity room for snack and medication, pt is alert and oriented x3, calm and cooperative, medication compliant, good appetite, denies si/hi, denies a/v/h, no complaints voiced, no distress noted, will continue to monitor for safety. Psych Progress HPI Patient reports doing good, says he rested well yesterday something he very much needed, denies any thought disorder or intrusive thought process. Patient also denies auditory visual hallucinations, endorses good appetite and sleep and has also been medication compliant. Reason for continuing inpatient treatment: Improved mood stability, patient denies SI HI we will continue to observe for medication tolerance and side effects Review of Symptoms: Constitutional: Negative for weight loss ENT: Negative for stridor Respiratory: Negative for cough or hemoptysis All other systems reviewed and are negative MENTAL STATUS EXAMINATION General Appearance and Behavior: Age appropriate, good hygiene, wearing appropriate clothes, good eye contact, cooperative polite with questioning. Cooperation: Participating/engaged Psychomotor Behavior: unremarkable and within normal limits Mood: Good Affect and affective range: congruent with mood Thought Process: Fluent/Logical, Thought Content: Within reality, Speech: Normal volume, Regular rate and rhythm, Intellectual Functioning: Average Suicidal Ideation: Denies SI Homicidal Ideation: Denies HI Impulse Control: Unimpaired Insight and Judgment: Normal insight and judgment, Memory: Normal, Attention: Normal, Orientation: Alert, oriented, Assessment and Plan - Patient Problems (1) Schizoaffective disorder Current Visit: Yes Status: Acute Treatment Plan Continue current medications Patient admitted for inpatient psychiatric evaluation, medication adjustment and close monitoring The patient's behavior, mood, sleep and appetite will be closely monitored. Patient enrolled in individual and group therapeutic sessions and encouraged to attend. Patient provided with a safe and structured environment. Patient's physical health needs will be addressed by the Hospitalist. Hospitalist Consulted Labs including CBC, CMP, Lipid profile and Hemoglobin A1C levels ordered for baseline reference Social Assessment will be completed and the Lumber Hacker will work with patient and family to ensure a suitable and safe disposition Medication adjustment will be made as clinically indicated Usual Wellness Jainism/Preservation: - Start Trazodone 50 mg po QHS & 50 mg po QHS PRN between 10 PM & 2 AM for insomnia - Start Melatonin 5 mg po QHS to promote circadian rhythm - Start [place]-3 for brain health, reduce impulsivity, and as adjunctive treatment for mood disorder, continue upon discharge given overall benefits. - Start B1 prophylaxis with 200 mg po for 5 days The patient agreed on the treatment plan, understood the risk, benefit, alternative treatment, potential consequence of no treatment, and gave informed consent. Initial Certification Inpatient psych services: I certify that the inpatient psychiatric services are required for treatment that could reasonably be expected to improve the patient's condition. Estimated days: 2 Post hospital care: primary care provider, psychiatric provider Assessment and Plan - Patient Problems (1) Schizoaffective disorder Current Visit: Yes Status: Acute Medications and Allergies Allergies Allergy/AdvReac Type Severity Reaction Status Date / Time No Known Allergies Allergy Unverified 09/12/18 03:50 Home Medications Medication Instructions Recorded Confirmed Last Taken Type [place] 3 mg PO DAILY 06/04/20 06/06/20 Unknown History Prolixin 2 mg PO DAILY 06/04/20 06/06/20 Unknown History haloperidoL [Haldol] 2 mg PO DAILY 06/04/20 06/06/20 Unknown History Active Meds: Active Medications Benztropine Mesylate (Cogentin) 0.5 mg PO DAILY [facility] Last Admin: 06/09/20 10:30 Dose: 0.5 mg Documented by: Divalproex Sodium (Depakote Dr) 250 mg PO BID [facility] Last Admin: 06/09/20 21:15 Dose: 250 mg Documented by: Folic Acid (Folvite) 1 mg PO QDAY [facility] Last Admin: 06/09/20 10:34 Dose: 1 mg Documented by: Haloperidol (Haldol) 5 mg PO BID [facility] Last Admin: 06/09/20 21:15 Dose: 5 mg Documented by: Multivitamins (Theragran Tab) 1 each PO QDAY [facility] Last Admin: 06/09/20 10:30 Dose: 1 each Documented by: Thiamine HCl (Vitamin B-1) 100 mg PO QDAY [facility] Last Admin: 06/09/20 10:27 Dose: 100 mg Documented by: Trazodone HCl (Desyrel) 50 mg PO QHS [facility] Last Admin: 06/09/20 21:15 Dose: 50 mg Documented by: Results - Results Labs/Vitals: Laboratory Last Values POC Glucose 112 mg/dL (70-105) H 06/05/20 22:43 TSH 0.057 mlU/mL (0.270-4.200) L 06/06/20 Unknown Last Vital Signs Temp 98.3 F 06/10/20 07:43 Pulse 58 L 06/10/20 07:43 Resp 18 06/10/20 07:43 BP 145/70 06/10/20 07:43 Pulse Ox 100 06/10/20 07:43
[2020-06-10] MEDS: BENZTROPINE 0.5 MG TAB PO SCH (10:08)
[2020-06-10] MEDS: HALOPERIDOL 5 MG TAB PO SCH ×2 (10:08→21:12)
[2020-06-10] MEDS: MULTIVITAMINS ,THERAPEUTIC TAB PO SCH (10:08)
[2020-06-10] MEDS: DIVALPROEX DR 250 MG TAB PO SCH ×2 (10:08→21:12)
[2020-06-10] MEDS: FOLIC ACID 1 MG TAB PO SCH (10:08)
[2020-06-10] MEDS: THIAMINE 100 MG TAB PO SCH (11:20)
[2020-06-10] MEDS: traZODone 50 MG TAB PO SCH (21:12)
--- NOTE | 2020-06-11 08:30 | Progress Note ---
Subjective Date of service: 06/11/20 Principal diagnosis: Schizophrenia Subjective Comment: Per Psych Nurse: Patient has a quiet evening. He spent the evening in bed. With prompting the would get up for meals or snacks. He does not interact with anyone. Patient denies si/hi/ah/vh. Will continue to monitor patient for safety. Psych Progress HPI Today, patient describes mood as stable, eating well and sleeping without disturbances or poor sleep pattern. Patient denies auditory or visual hallucinations, and also denies suicidal thoughts. Reason for continuing inpatient treatment: Improved mood stability, patient d enies SI HI we will continue to observe for medication tolerance and side effects Review of Symptoms: Constitutional: Negative for weight loss ENT: Negative for stridor Respiratory: Negative for cough or hemoptysis All other systems reviewed and are negative MENTAL STATUS EXAMINATION General Appearance and Behavior: Age appropriate, good hygiene, wearing appropriate clothes, good eye contact, cooperative polite with questioning. Cooperation: Participating/engaged Psychomotor Behavior: unremarkable and within normal limits Mood: Good Affect and affective range: congruent with mood Thought Process: Fluent/Logical, Thought Content: Within reality, Speech: Normal volume, Regular rate and rhythm, Intellectual Functioning: Average Suicidal Ideation: Denies SI Homicidal Ideation: Denies HI Impulse Control: Unimpaired Insight and Judgment: Normal insight and judgment, Memory: Normal, Attention: Normal, Orientation: Alert, oriented, Assessment and Plan - Patient Problems (1) Schizoaffective disorder Current Visit: Yes Status: Acute Treatment Plan Continue current medications Patient admitted for inpatient psychiatric evaluation, medication adjustment and close monitoring The patient's behavior, mood, sleep and appetite will be closely monitored. Patient enrolled in individual and group therapeutic sessions and encouraged to attend. Patient provided with a safe and structured environment. Patient's physical health needs will be addressed by the Hospitalist. Hospitalist Consulted Labs including CBC, CMP, Lipid profile and Hemoglobin A1C levels ordered for baseline reference Social Assessment will be completed and the Shift Supervisor Melting will work with patient and family to ensure a suitable and safe disposition Medication adjustment will be made as clinically indicated Usual Wellness Restorationist/Preservation: - Start Trazodone 50 mg po QHS & 50 mg po QHS PRN between 10 PM & 2 AM for insomnia - Start Melatonin 5 mg po QHS to promote circadian rhythm - Start [place]-3 for brain health, reduce impulsivity, and as adjunctive treatment for mood disorder, continue upon discharge given overall benefits. - Start B1 prophylaxis with 200 mg po for 5 days The patient agreed on the treatment plan, understood the risk, benefit, alternative treatment, potential consequence of no treatment, and gave informed consent. Initial Certification Inpatient psych services: I certify that the inpatient psychiatric services are required for treatment that could reasonably be expected to improve the patient's condition. Estimated days: 2 Post hospital care: primary care provider, psychiatric provider Assessment and Plan - Patient Problems (1) Schizoaffective disorder Current Visit: Yes Status: Acute Medications and Allergies Allergies Allergy/AdvReac Type Severity Reaction Status Date / Time No Known Allergies Allergy Unverified 09/12/18 03:50 Home Medications Medication Instructions Recorded Confirmed Last Taken Type [place] 3 mg PO DAILY 06/04/20 06/06/20 Unknown History Prolixin 2 mg PO DAILY 06/04/20 06/06/20 Unknown History haloperidoL [Haldol] 2 mg PO DAILY 06/04/20 06/06/20 Unknown History Active Meds: Active Medications Benztropine Mesylate (Cogentin) 0.5 mg PO DAILY [facility] Last Admin: 06/10/20 10:08 Dose: 0.5 mg Documented by: Divalproex Sodium (Depakote Dr) 250 mg PO BID [facility] Last Admin: 06/10/20 21:12 Dose: 250 mg Documented by: Folic Acid (Folvite) 1 mg PO QDAY [facility] Last Admin: 06/10/20 10:08 Dose: 1 mg Documented by: Haloperidol (Haldol) 5 mg PO BID [facility] Last Admin: 06/10/20 21:12 Dose: 5 mg Documented by: Multivitamins (Theragran Tab) 1 each PO QDAY [facility] Last Admin: 06/10/20 10:08 Dose: 1 each Documented by: Thiamine HCl (Vitamin B-1) 100 mg PO QDAY [facility] Last Admin: 06/10/20 11:20 Dose: Not Given Documented by: Trazodone HCl (Desyrel) 50 mg PO QHS [facility] Last Admin: 06/10/20 21:12 Dose: 50 mg Documented by: Results - Results Labs/Vitals: Laboratory Last Values POC Glucose 112 mg/dL (70-105) H 06/05/20 22:43 TSH 0.057 mlU/mL (0.270-4.200) L 11/10/20 Unknown Last Vital Signs Temp 98.2 F 06/11/20 07:31 Pulse 61 06/11/20 07:31 Resp 18 06/11/20 07:31 BP 155/80 06/11/20 07:31 Pulse Ox 93 06/11/20 07:31
[2020-06-11] MEDS: THIAMINE 100 MG TAB PO SCH (09:51)
[2020-06-11] MEDS: DIVALPROEX DR 250 MG TAB PO SCH ×2 (09:51→21:16)
[2020-06-11] MEDS: HALOPERIDOL 5 MG TAB PO SCH ×2 (09:51→21:16)
[2020-06-11] MEDS: FOLIC ACID 1 MG TAB PO SCH (09:51)
[2020-06-11] MEDS: MULTIVITAMINS ,THERAPEUTIC TAB PO SCH (09:51)
[2020-06-11] MEDS: BENZTROPINE 0.5 MG TAB PO SCH (09:51)
[2020-06-11] MEDS: traZODone 50 MG TAB PO SCH (21:16)
--- NOTE | 2020-06-12 07:35 | Progress Note ---
Subjective Date of service: 06/12/20 Principal diagnosis: Schizophrenia Subjective Comment: Per Psych Nurse: Pt received in bed relaxing. Denies pain, SI or HI. No acute distress observed and none reported. Encouraged to come to day room for snack and he expressed understanding. Will continue to monitor. Psych Progress HPI Patient describes a good and stable mood, denies being depressed or excessively nervous. Patient eats and sleeps well. Patient denies panic attacks, recurrent nightmares or flashbacks. Patient denies symptoms suggestive of OCD or PTSD. Patient denies hallucinations, paranoia, thought interference and no features suggestive of hypomania or albert. She completely denies suicidal or homicidal thoughts Reason for continuing inpatient treatment: Improved mood stability, patient denies SI HI we will continue to observe for medication tolerance and side effects Review of Symptoms: Constitutional: Negative for weight loss ENT: Negative for stridor Respiratory: Negative for cough or hemoptysis All other systems reviewed and are negative MENTAL STATUS EXAMINATION General Appearance and Behavior: Age appropriate, good hygiene, wearing appropriate clothes, good eye contact, cooperative polite with questioning. Cooperation: Participating/engaged Psychomotor Behavior: unremarkable and within normal limits Mood: Good Affect and affective range: congruent with mood Thought Process: Fluent/Logical, Thought Content: Within reality, Speech: Normal volume, Regular rate and rhythm, Intellectual Functioning: Average Suicidal Ideation: Denies SI Homicidal Ideation: Denies HI Impulse Control: Unimpaired Insight and Judgment: Normal insight and judgment, Memory: Normal, Attention: Normal, Orientation: Alert, oriented, Assessment and Plan - Patient Problems (1) Schizoaffective disorder Current Visit: Yes Status: Acute Treatment Plan Continue current medications Patient admitted for inpatient psychiatric evaluation, medication adjustment and close monitoring The patient's behavior, mood, sleep and appetite will be closely monitored. Patient enrolled in individual and group therapeutic sessions and encouraged to attend. Patient provided with a safe and structured environment. Patient's physical health needs will be addressed by the Hospitalist. Hospitalist Consulted Labs including CBC, CMP, Lipid profile and Hemoglobin A1C levels ordered for baseline reference Social Assessment will be completed and the Dredge Runner will work with patient and family to ensure a suitable and safe disposition Medication adjustment will be made as clinically indicated Usual Wellness Christian/Preservation: - Start Trazodone 50 mg po QHS & 50 mg po QHS PRN between 10 PM & 2 AM for insomnia - Start Melatonin 5 mg po QHS to promote circadian rhythm - Start [place]-3 for brain health, reduce impulsivity, and as adjunctive treatment for mood disorder, continue upon discharge given overall benefits. - Start B1 prophylaxis with 200 mg po for 5 days The patient agreed on the treatment plan, understood the risk, benefit, alternative treatment, potential consequence of no treatment, and gave informed consent. Initial Certification Inpatient psych services: I certify that the inpatient psychiatric services are required for treatment that could reasonably be expected to improve the patient's condition. Estimated days: 2 Post hospital care: primary care provider, psychiatric provider Assessment and Plan - Patient Problems (1) Schizoaffective disorder Current Visit: Yes Status: Acute Medications and Allergies Allergies Allergy/AdvReac Type Severity Reaction Status Date / Time No Known Allergies Allergy Unverified 09/12/18 03:50 Home Medications Medication Instructions Recorded Confirmed Last Taken Type [place] 3 mg PO DAILY 06/04/20 06/06/20 Unknown History Prolixin 2 mg PO DAILY 06/04/20 06/06/20 Unknown History haloperidoL [Haldol] 2 mg PO DAILY 06/04/20 06/06/20 Unknown History Active Meds: Active Medications Benztropine Mesylate (Cogentin) 0.5 mg PO DAILY [facility] Last Admin: 06/11/20 09:51 Dose: 0.5 mg Documented by: Divalproex Sodium (Depakote Dr) 250 mg PO BID [facility] Last Admin: 06/11/20 21:16 Dose: 250 mg Documented by: Folic Acid (Folvite) 1 mg PO QDAY [facility] Last Admin: 06/11/20 09:51 Dose: 1 mg Documented by: Haloperidol (Haldol) 5 mg PO BID [facility] Last Admin: 06/11/20 21:16 Dose: 5 mg Documented by: Multivitamins (Theragran Tab) 1 each PO QDAY [facility] Last Admin: 06/11/20 09:51 Dose: 1 each Documented by: Thiamine HCl (Vitamin B-1) 100 mg PO QDAY [facility] Last Admin: 06/11/20 09:51 Dose: 100 mg Documented by: Trazodone HCl (Desyrel) 50 mg PO QHS [facility] Last Admin: 06/11/20 21:16 Dose: 50 mg Documented by: Results - Results Labs/Vitals: Laboratory Last Values POC Glucose 112 mg/dL (70-105) H 06/05/20 22:43 TSH 0.057 mlU/mL (0.270-4.200) L 06/06/20 Unknown Last Vital Signs Temp 98.4 F 06/11/20 18:41 Pulse 63 06/11/20 18:41 Resp 16 06/11/20 18:41 BP 149/68 06/11/20 18:41 Pulse Ox 95 06/11/20 18:41
--- NOTE | 2020-06-12 08:15 | Progress Note ---
Subjective Date of service: 06/12/20 Principal diagnosis: Schizophrenia Subjective Comment: Per Psych Nurse: Pt received in bed relaxing. Denies pain, SI or HI. No acute distress observed and none reported. Encouraged to come to day room for snack and he expressed understanding. Will continue to monitor. Psych Progress HPI Patient seen this AM, Patient describes a good and stable mood, denies being depressed or excessively nervous. Patient eats and sleeps well. Patient denies panic attacks, recurrent nightmares or flashbacks. Patient denies symptoms suggestive of OCD or PTSD. Patient denies hallucinations, paranoia, thought interference and no features suggestive of hypomania or albert. He completely denies suicidal or homicidal thoughts. Reason for continuing inpatient treatment: Will start planning for safety discharge. Review of Symptoms: Constitutional: Negative for weight loss ENT: Negative for stridor Respiratory: Negative for cough or hemoptysis All other systems reviewed and are negative MENTAL STATUS EXAMINATION General Appearance and Behavior: Age appropriate, good hygiene, wearing appropriate clothes, good eye contact, cooperative polite with questioning. Cooperation: Participating/engaged Psychomotor Behavior: unremarkable and within normal limits Mood: Good Affect and affective range: congruent with mood Thought Process: Fluent/Logical, Thought Content: Within reality, Speech: Normal volume, Regular rate and rhythm, Intellectual Functioning: Average Suicidal Ideation: Denies SI Homicidal Ideation: Denies HI Impulse Control: Unimpaired Insight and Judgment: Normal insight and judgment, Memory: Normal, Attention: Normal, Orientation: Alert, oriented, Assessment and Plan - Patient Problems (1) Schizoaffective disorder Current Visit: Yes Status: Acute Treatment Plan Continue current medications Patient admitted for inpatient psychiatric evaluation, medication adjustment and close monitoring The patient's behavior, mood, sleep and appetite will be closely monitored. Patient enrolled in individual and group therapeutic sessions and encouraged to attend. Patient provided with a safe and structured environment. Patient's physical health needs will be addressed by the Hospitalist. Hospitalist Consulted Labs including CBC, CMP, Lipid profile and Hemoglobin A1C levels ordered for baseline reference Social Assessment will be completed and the Molded Parts Inspector will work with patient and family to ensure a suitable and safe disposition Medication adjustment will be made as clinically indicated Usual Wellness Oriental Orthodox/Preservation: - Start Trazodone 50 mg po QHS & 50 mg po QHS PRN between 10 PM & 2 AM for insomnia - Start Melatonin 5 mg po QHS to promote circadian rhythm - Start [place]-3 for brain health, reduce impulsivity, and as adjunctive treatment for mood disorder, continue upon discharge given overall benefits. - Start B1 prophylaxis with 200 mg po for 5 days The patient agreed on the treatment plan, understood the risk, benefit, alternative treatment, potential consequence of no treatment, and gave informed consent. Initial Certification Inpatient psych services: I certify that the inpatient psychiatric services are required for treatment that could reasonably be expected to improve the patient's condition. Estimated days: 2 Post hospital care: primary care provider, psychiatric provider Assessment and Plan - Patient Problems (1) Schizoaffective disorder Current Visit: Yes Status: Acute Medications and Allergies Allergies Allergy/AdvReac Type Severity Reaction Status Date / Time No Known Allergies Allergy Unverified 09/12/18 03:50 Home Medications Medication Instructions Recorded Confirmed Last Taken Type [place] 3 mg PO DAILY 06/04/20 06/06/20 Unknown History Prolixin 2 mg PO DAILY 06/04/20 06/06/20 Unknown History haloperidoL [Haldol] 2 mg PO DAILY 06/04/20 06/06/20 Unknown History Active Meds: Active Medications Benztropine Mesylate (Cogentin) 0.5 mg PO DAILY [facility] Last Admin: 06/11/20 09:51 Dose: 0.5 mg Documented by: Divalproex Sodium (Depakote Dr) 250 mg PO BID [facility] Last Admin: 06/11/20 21:16 Dose: 250 mg Documented by: Folic Acid (Folvite) 1 mg PO QDAY [facility] Last Admin: 06/11/20 09:51 Dose: 1 mg Documented by: Haloperidol (Haldol) 5 mg PO BID [facility] Last Admin: 06/11/20 21:16 Dose: 5 mg Documented by: Multivitamins (Theragran Tab) 1 each PO QDAY [facility] Last Admin: 06/11/20 09:51 Dose: 1 each Documented by: Thiamine HCl (Vitamin B-1) 100 mg PO QDAY [facility] Last Admin: 06/11/20 09:51 Dose: 100 mg Documented by: Trazodone HCl (Desyrel) 50 mg PO QHS [facility] Last Admin: 06/11/20 21:16 Dose: 50 mg Documented by: Results - Results Labs/Vitals: Laboratory Last Values POC Glucose 112 mg/dL (70-105) H 06/05/20 22:43 TSH 0.057 mlU/mL (0.270-4.200) L 06/06/20 Unknown Last Vital Signs Temp 98.4 F 06/11/20 18:41 Pulse 63 06/11/20 18:41 Resp 16 06/11/20 18:41 BP 149/68 06/11/20 18:41 Pulse Ox 95 06/11/20 18:41
--- NOTE | 2020-06-12 10:50 | XRay Report ---
CHEST 1 VIEW INDICATION: R/O TB, FOR PLACEMENT IN FACILITY. COMPARISON: None. FINDINGS: Support devices: None. Heart: Normal. Lungs/Pleura: No acute pulmonary or pleural findings. IMPRESSION: 1. No acute findings. No radiographic evidence for tuberculosis. Signer Name: Micah Ziegler MD Signed: 06/12/2020 10:45 AM Workstation Name: [id number]
[2020-06-12] MEDS: FOLIC ACID 1 MG TAB PO SCH (10:51)
[2020-06-12] MEDS: HALOPERIDOL 5 MG TAB PO SCH ×2 (10:51→21:15)
[2020-06-12] MEDS: BENZTROPINE 0.5 MG TAB PO SCH (10:51)
[2020-06-12] MEDS: THIAMINE 100 MG TAB PO SCH (10:51)
[2020-06-12] MEDS: DIVALPROEX DR 250 MG TAB PO SCH ×2 (10:51→21:15)
[2020-06-12] MEDS: MULTIVITAMINS ,THERAPEUTIC TAB PO SCH (10:51)
--- NOTE | 2020-06-12 12:04 | Progress Note ---
Assessment and Plan - Patient Problems (1) EtOH dependence Current Visit: Yes Status: Acute Qualifiers: Substance use status: uncomplicated Qualified Code(s): F10.20 - Alcohol dependence, uncomplicated Plan to address problem: Thiamine, folic acid, multivitamin, no signs of alcohol withdrawal at this time. (2) Acute psychosis Current Visit: No Status: Deleted Plan to address problem: Supportive care, continue medical management as per primary team. History Interval history: 55 YO Male Schizophrenia, ETOH Dependence admitted to [facility] for Psychiatric stabilization. Patient seen and evaluated in recreation room. Patient resting comfortably. Patient denies pain. No reported nursing events. Patient denies tremors, auditory or visual hallucinations. Hospitalist Physical - Constitutional Vitals: Temp Pulse Resp BP Pulse Ox 98.2 F 67 18 136/68 93 06/12/20 08:49 06/12/20 08:49 06/12/20 08:49 06/12/20 08:49 06/12/20 08:49 General appearance: Present: no acute distress - EENT Eyes: Present: PERRL, EOM intact - Neck Neck: Present: supple - Respiratory Respiratory effort: normal Respiratory: bilateral: CTA - Cardiovascular Rhythm: regular - Extremities Extremities: no ischemia Peripheral Pulses: within normal limits - Abdominal General gastrointestinal: soft, non-tender, non-distended - Integumentary Integumentary: Present: clear, dry - Psychiatric Psychiatric: cooperative - Neurologic Neurologic: CNII-XII intact Results - Labs Labs: Laboratory Last Values POC Glucose 112 mg/dL (70-105) H 06/05/20 22:43 TSH 0.057 mlU/mL (0.270-4.200) L 06/06/20 Unknown [place]/IV: Voiding Method Toilet Active Medications - Current Medications Current Medications: Generic Name Dose Route Start Last Admin Trade Name Freq PRN Reason Stop Dose Admin Benztropine Mesylate 0.5 mg 06/06/20 11:00 06/12/20 10:51 Cogentin PO 0.5 mg DAILY [facility] Administration Divalproex Sodium 250 mg 06/08/20 10:00 06/12/20 10:[address] PO 250 mg BID [facility] Administration Folic Acid 1 mg 06/08/20 13:00 06/12/20 10:51 Folvite PO 1 mg QDAY [facility] Administration Haloperidol 5 mg 06/07/20 22:00 06/12/20 10:51 Haldol PO 5 mg BID [facility] Administration Multivitamins 1 each 06/08/20 13:00 06/12/20 10:51 Theragran Tab PO 1 each QDAY [facility] Administration Thiamine HCl 100 mg 06/08/20 13:00 06/12/20 10:51 Vitamin B-1 PO 100 mg QDAY [facility] Administration Trazodone HCl 50 mg 06/05/20 22:00 06/11/20 21:16 Desyrel PO 50 mg QHS [facility] Administration Nutrition/Malnutrition Assess - Dietary Evaluation Nutrition/Malnutrition Findings: Nutrition Notes Start: 06/12/20 09:17 Freq: Status: Active Protocol: Document 06/12/20 09:17 KATIA (Rec: 06/12/20 09:18 KATIA [id number]) Nutrition Notes Need for Assessment generated from: LOS Initial or Follow up Brief Note Other Pertinent Diagnosis schizoaffective disorder, EtOH dependence Current Diet Regular Subjective/Other Information Screen for LOS. Per chart, pt consuming 100% of meals. Nutrition Intervention Revisit per MD consult or patient Sign Off request:
--- NOTE | 2020-06-12 12:05 | Progress Note ---
Assessment and Plan - Patient Problems (1) EtOH dependence Current Visit: Yes Status: Acute Qualifiers: Substance use status: uncomplicated Qualified Code(s): F10.20 - Alcohol dependence, uncomplicated Plan to address problem: Thiamine, folic acid, multivitamin, no signs of alcohol withdrawal at this time. (2) Acute psychosis Current Visit: No Status: Deleted Plan to address problem: Supportive care, continue medical management as per primary team. History Interval history: 55 YO Male Schizophrenia, ETOH Dependence admitted to [facility] for Psychiatric stabilization. Patient seen and evaluated in recreation room. Patient resting comfortably. Patient denies pain. No reported nursing events. Patient denies tremors, auditory or visual hallucinations. Hospitalist Physical - Constitutional Vitals: Temp Pulse Resp BP Pulse Ox 98.2 F 67 18 136/68 93 06/12/20 08:49 06/12/20 08:49 06/12/20 08:49 06/12/20 08:49 06/12/20 08:49 General appearance: Present: no acute distress - EENT Eyes: Present: PERRL ENT: hearing intact - Neck Neck: Present: supple - Respiratory Respiratory effort: normal Respiratory: bilateral: CTA - Cardiovascular Rhythm: regular Heart Sounds: Present: S1 & S2 - Extremities Extremities: no ischemia Peripheral Pulses: within normal limits - Abdominal General gastrointestinal: soft, non-tender, non-distended - Integumentary Integumentary: Present: clear, dry - Psychiatric Psychiatric: cooperative - Neurologic Neurologic: CNII-XII intact Results - Labs Labs: Laboratory Last Values POC Glucose 112 mg/dL (70-105) H 06/05/20 22:43 TSH 0.057 mlU/mL (0.270-4.200) L 06/06/20 Unknown [place]/IV: Voiding Method Toilet Active Medications - Current Medications Current Medications: Generic Name Dose Route Start Last Admin Trade Name Freq PRN Reason Stop Dose Admin Benztropine Mesylate 0.5 mg 06/06/20 11:00 06/12/20 10:51 Cogentin PO 0.5 mg DAILY [facility] Administration Divalproex Sodium 250 mg 06/08/20 10:00 06/12/20 10:[address] PO 250 mg BID [facility] Administration Folic Acid 1 mg 06/08/20 13:00 06/12/20 10:51 Folvite PO 1 mg QDAY [facility] Administration Haloperidol 5 mg 06/07/20 22:00 06/12/20 10:51 Haldol PO 5 mg BID [facility] Administration Multivitamins 1 each 06/08/20 13:00 06/12/20 10:51 Theragran Tab PO 1 each QDAY [facility] Administration Thiamine HCl 100 mg 06/08/20 13:00 06/12/20 10:51 Vitamin B-1 PO 100 mg QDAY [facility] Administration Trazodone HCl 50 mg 06/05/20 22:00 06/11/20 21:16 Desyrel PO 50 mg QHS [facility]INO Administration Nutrition/Malnutrition Assess - Dietary Evaluation Nutrition/Malnutrition Findings: Nutrition Notes Start: 06/12/20 09:17 Freq: Status: Active Protocol: Document 06/12/20 09:17 KATIA (Rec: 06/12/20 09:18 KATIA [id number]) Nutrition Notes Need for Assessment generated from: LOS Initial or Follow up Brief Note Other Pertinent Diagnosis schizoaffective disorder, EtOH dependence Current Diet Regular Subjective/Other Information Screen for LOS. Per chart, pt consuming 100% of meals. Nutrition Intervention Revisit per MD consult or patient Sign Off request:
--- NOTE | 2020-06-12 12:06 | Progress Note ---
Assessment and Plan - Patient Problems (1) EtOH dependence Current Visit: Yes Status: Acute Qualifiers: Substance use status: uncomplicated Qualified Code(s): F10.20 - Alcohol dependence, uncomplicated Plan to address problem: Thiamine, folic acid, multivitamin, no signs of alcohol withdrawal at this time. (2) Acute psychosis Current Visit: No Status: Deleted Plan to address problem: Supportive care, continue medical management as per primary team. History Interval history: 55 YO Male Schizophrenia, ETOH Dependence admitted to [facility] for Psychiatric stabilization. Patient seen and evaluated in recreation room. Patient resting comfortably and denies complaints at the time of my evaluation. Patient denies pain. No reported nursing events. Patient denies tremors, auditory or visual hallucinations. Hospitalist Physical - Constitutional Vitals: Temp Pulse Resp BP Pulse Ox 98.2 F 67 18 136/68 93 06/12/20 08:49 06/12/20 08:49 06/12/20 08:49 06/12/20 08:49 06/12/20 08:49 General appearance: Present: no acute distress - EENT Eyes: Present: PERRL, EOM intact ENT: hearing intact - Neck Neck: Present: supple - Respiratory Respiratory effort: normal Respiratory: bilateral: CTA - Cardiovascular Rhythm: regular Heart Sounds: Present: S1 & S2 - Extremities Extremities: no ischemia Peripheral Pulses: within normal limits - Abdominal General gastrointestinal: soft, non-tender, non-distended - Integumentary Integumentary: Present: clear, dry - Psychiatric Psychiatric: cooperative - Neurologic Neurologic: CNII-XII intact Results - Labs Labs: Laboratory Last Values POC Glucose 112 mg/dL (70-105) H 06/05/20 22:43 TSH 0.057 mlU/mL (0.270-4.200) L 06/06/20 Unknown [place]/IV: Voiding Method Toilet Active Medications - Current Medications Current Medications: Generic Name Dose Route Start Last Admin Trade Name Freq PRN Reason Stop Dose Admin Benztropine Mesylate 0.5 mg 06/06/20 11:00 06/12/20 10:51 Cogentin PO 0.5 mg DAILY [facility] Administration Divalproex Sodium 250 mg 06/08/20 10:00 06/12/20 10:[address] PO 250 mg BID [facility] Administration Folic Acid 1 mg 06/08/20 13:00 06/12/20 10:51 Folvite PO 1 mg QDAY [facility] Administration Haloperidol 5 mg 06/07/20 22:00 06/12/20 10:51 Haldol PO 5 mg BID [facility] Administration Multivitamins 1 each 06/08/20 13:00 06/12/20 10:51 Theragran Tab PO 1 each QDAY [facility] Administration Thiamine HCl 100 mg 06/08/20 13:00 06/12/20 10:51 Vitamin B-1 PO 100 mg QDAY [facility] Administration Trazodone HCl 50 mg 06/05/20 22:00 06/11/20 21:16 Desyrel PO 50 mg QHS [facility] Administration Nutrition/Malnutrition Assess - Dietary Evaluation Nutrition/Malnutrition Findings: Nutrition Notes Start: 06/12/20 09:17 Freq: Status: Active Protocol: Document 06/12/20 09:17 KATIA (Rec: 06/12/20 09:18 KATIA [id number]) Nutrition Notes Need for Assessment generated from: LOS Initial or Follow up Brief Note Other Pertinent Diagnosis schizoaffective disorder, EtOH dependence Current Diet Regular Subjective/Other Information Screen for LOS. Per chart, pt consuming 100% of meals. Nutrition Intervention Revisit per MD consult or patient Sign Off request:
[2020-06-12] MEDS: traZODone 50 MG TAB PO SCH (21:15)
--- NOTE | 2020-06-13 07:39 | Progress Note ---
Subjective Date of service: 06/13/20 Principal diagnosis: Schizophrenia Subjective Comment: Per Psych Nurse: pt spent the evening laying in bed withdrawn to self , comes out for snack and medication and goes back to bed, pt is alert and cooperative, able to make needs known, medication compliance, good appetite, denies si/hi. denies a/v/h, no distress noted, will continue to monitor for safety. Psych Progress HPI Patient reported an aura today, patient reported he knows he is about to be discharged but he would like to complain that he is seeing a box in his room in the corner that is shining green light into his eyes prompting him to stick his hand in his butt and then wiping his eyes to protect himself and he would like to shilo and get paid for the incident. Patient denies SI, Hi and reports compliance with his medications Reason for continuing inpatient treatment: Though patient denies SI HI, concern for psychopathological interference that was never reported by patient prior which could also be related to patient attempt to delay discharge. we will continue to observe today with plan to discharge tomorow. Review of Symptoms: Constitutional: Negative for weight loss ENT: Negative for stridor Respiratory: Negative for cough or hemoptysis All other systems reviewed and are negative MENTAL STATUS EXAMINATION General Appearance and Behavior: Age appropriate, good hygiene, wearing appropriate clothes, good eye contact, cooperative polite with questioning. Cooperation: Participating/engaged Psychomotor Behavior: unremarkable and within normal limits Mood: Good Affect and affective range: congruent with mood Thought Process: Fluent/Logical, Thought Content: illogical Speech: Normal volume, Regular rate and rhythm, Intellectual Functioning: Average Suicidal Ideation: Denies SI Homicidal Ideation: Denies HI Impulse Control: impaired Insight and Judgment: Normal insight and judgment, Memory: Normal, Attention: Normal, Orientation: Alert, oriented, Assessment and Plan - Patient Problems (1) Schizoaffective disorder Current Visit: Yes Status: Acute Treatment Plan Continue current medications Patient admitted for inpatient psychiatric evaluation, medication adjustment and close monitoring The patient's behavior, mood, sleep and appetite will be closely monitored. Patient enrolled in individual and group therapeutic sessions and encouraged to attend. Patient provided with a safe and structured environment. Patient's physical health needs will be addressed by the Hospitalist. Hospitalist Consulted Labs including CBC, CMP, Lipid profile and Hemoglobin A1C levels ordered for baseline reference Social Assessment will be completed and the [place] [employer] Cartridge Tester will work with patient and family to ensure a suitable and safe disposition Medication adjustment will be made as clinically indicated Usual Wellness Anabaptist/Preservation: - Start Trazodone 50 mg po QHS & 50 mg po QHS PRN between 10 PM & 2 AM for insomnia - Start Melatonin 5 mg po QHS to promote circadian rhythm - Start [place]-3 for brain health, reduce impulsivity, and as adjunctive treatment for mood disorder, continue upon discharge given overall benefits. - Start B1 prophylaxis with 200 mg po for 5 days The patient agreed on the treatment plan, understood the risk, benefit, alternative treatment, potential consequence of no treatment, and gave informed consent. Initial Certification Inpatient psych services: I certify that the inpatient psychiatric services are required for treatment that could reasonably be expected to improve the patient's condition. Estimated days: 1 Post hospital care: primary care provider, psychiatric provider Assessment and Plan - Patient Problems (1) Schizoaffective disorder Current Visit: Yes Status: Acute Medications and Allergies Allergies Allergy/AdvReac Type Severity Reaction Status Date / Time No Known Allergies Allergy Unverified 09/12/18 03:50 Home Medications Medication Instructions Recorded Confirmed Last Taken Type [place] 3 mg PO DAILY 06/04/20 06/06/20 Unknown History Prolixin 2 mg PO DAILY 06/04/20 06/06/20 Unknown History haloperidoL [Haldol] 2 mg PO DAILY 06/04/20 06/06/20 Unknown History Active Meds: Active Medications Benztropine Mesylate (Cogentin) 0.5 mg PO DAILY [facility] Last Admin: 06/12/20 10:51 Dose: 0.5 mg Documented by: Divalproex Sodium (Depakote Dr) 250 mg PO BID [facility] Last Admin: 06/12/20 21:15 Dose: 250 mg Documented by: Folic Acid (Folvite) 1 mg PO QDAY [facility] Last Admin: 06/12/20 10:51 Dose: 1 mg Documented by: Haloperidol (Haldol) 5 mg PO BID [facility] Last Admin: 06/12/20 21:15 Dose: 5 mg Documented by: Multivitamins (Theragran Tab) 1 each PO QDAY [facility] Last Admin: 06/12/20 10:51 Dose: 1 each Documented by: Thiamine HCl (Vitamin B-1) 100 mg PO QDAY [facility] Last Admin: 06/12/20 10:51 Dose: 100 mg Documented by: Trazodone HCl (Desyrel) 50 mg PO QHS [facility] Last Admin: 06/12/20 21:15 Dose: 50 mg Documented by: Results - Results Labs/Vitals: Laboratory Last Values POC Glucose 112 mg/dL (70-105) H 06/05/20 22:43 TSH 0.057 mlU/mL (0.270-4.200) L 06/06/20 Unknown Last Vital Signs Temp 98.2 F 06/12/20 08:49 Pulse 67 06/12/20 08:49 Resp 18 06/12/20 08:49 BP 136/68 06/12/20 08:49 Pulse Ox 93 06/12/20 08:49
[2020-06-13] MEDS: MULTIVITAMINS ,THERAPEUTIC TAB PO SCH (09:37)
[2020-06-13] MEDS: FOLIC ACID 1 MG TAB PO SCH (09:38)
[2020-06-13] MEDS: BENZTROPINE 0.5 MG TAB PO SCH (09:38)
[2020-06-13] MEDS: THIAMINE 100 MG TAB PO SCH (09:38)
[2020-06-13] MEDS: DIVALPROEX DR 250 MG TAB PO SCH ×2 (09:38→21:39)
[2020-06-13] MEDS: HALOPERIDOL 5 MG TAB PO SCH ×2 (09:38→21:39)
[2020-06-13 20:28] VITALS: BP 150/69
[2020-06-13] MEDS: traZODone 50 MG TAB PO SCH (21:39)
--- NOTE | 2020-06-14 07:38 | Progress Note ---
Subjective Date of service: 06/14/20 Principal diagnosis: Schizophrenia Subjective Comment: Per Psych Nurse: Pt is isolative and withdrawn to self he is encouraged to be in the milieu and participate in unit activity but he declined. He is compliant with routine meds and no prns given. Pt refused snacks says he was not hungry. He denies any thoughts of SI and AH currently. No behavior issues will continue to monitor q 15 min for safety. Psych Progress HPI Patient seen this morning, patient presents in the much more uplifted mood, patient said he is happy because he knows he is going home today, says he is got money and is got a place to go and also steps out he would like to grab a can of [employer] just to take the picture, says he is not an alcoholic that is something you would like to do just a uplift is spirit. Patient denies any auditory or visual hallucination, endorses nursing antibiotic and of the room this night, also denies suicidal ideation Reason for continuing inpatient treatment: Plan for patient to be discharged today safely. Review of Symptoms: Constitutional: Negative for weight loss ENT: Negative for stridor Respiratory: Negative for cough or hemoptysis All other systems reviewed and are negative MENTAL STATUS EXAMINATION General Appearance and Behavior: Age appropriate, good hygiene, wearing appropriate clothes, good eye contact, cooperative polite with questioning. Cooperation: Participating/engaged Psychomotor Behavior: unremarkable and within normal limits Mood: Good Affect and affective range: congruent with mood Thought Process: Fluent/Logical, Thought Content: Logical Speech: Normal volume, Regular rate and rhythm, Intellectual Functioning: Average Suicidal Ideation: Denies SI Homicidal Ideation: Denies HI Impulse Control: impaired Insight and Judgment: Normal insight and judgment, Memory: Normal, Attention: Normal, Orientation: Alert, oriented, Assessment and Plan - Patient Problems (1) Schizoaffective disorder Current Visit: Yes Status: Acute Treatment Plan Continue current medications Patient admitted for inpatient psychiatric evaluation, medication adjustment and close monitoring The patient's behavior, mood, sleep and appetite will be closely monitored. Patient enrolled in individual and group therapeutic sessions and encouraged to attend. Patient provided with a safe and structured environment. Patient's physical health needs will be addressed by the Hospitalist. Hospitalist Consulted Labs including CBC, CMP, Lipid profile and Hemoglobin A1C levels ordered for baseline reference Social Assessment will be completed and the [place] Machinist will work with patient and family to ensure a suitable and safe disposition Medication adjustment will be made as clinically indicated Usual Wellness Quaker/Preservation: - Start Trazodone 50 mg po QHS & 50 mg po QHS PRN between 10 PM & 2 AM for insomnia - Start Melatonin 5 mg po QHS to promote circadian rhythm - Start [place]-3 for brain health, reduce impulsivity, and as adjunctive treatment for mood disorder, continue upon discharge given overall benefits. - Start B1 prophylaxis with 200 mg po for 5 days The patient agreed on the treatment plan, understood the risk, benefit, alternative treatment, potential consequence of no treatment, and gave informed consent. Initial Certification Inpatient psych services: I certify that the inpatient psychiatric services are required for treatment that could reasonably be expected to improve the patient's condition. Estimated days: 1 Post hospital care: primary care provider, psychiatric provider Assessment and Plan - Patient Problems (1) Schizoaffective disorder Current Visit: Yes Status: Acute Medications and Allergies Allergies Allergy/AdvReac Type Severity Reaction Status Date / Time No Known Allergies Allergy Unverified 09/12/18 03:50 Home Medications Medication Instructions Recorded Confirmed Last Taken Type [place] 3 mg PO DAILY 06/04/20 06/06/20 Unknown History Prolixin 2 mg PO DAILY 06/04/20 06/06/20 Unknown History haloperidoL [Haldol] 2 mg PO DAILY 06/04/20 06/06/20 Unknown History Active Meds: Active Medications Benztropine Mesylate (Cogentin) 0.5 mg PO DAILY [facility] Last Admin: 06/13/20 09:38 Dose: 0.5 mg Documented by: Divalproex Sodium (Depakote Dr) 250 mg PO BID [facility] Last Admin: 06/13/20 21:39 Dose: 250 mg Documented by: Folic Acid (Folvite) 1 mg PO QDAY [facility] Last Admin: 06/13/20 09:38 Dose: 1 mg Documented by: Haloperidol (Haldol) 5 mg PO BID [facility] Last Admin: 06/13/20 21:39 Dose: 5 mg Documented by: Multivitamins (Theragran Tab) 1 each PO QDAY [facility] Last Admin: 06/13/20 09:37 Dose: 1 each Documented by: Thiamine HCl (Vitamin B-1) 100 mg PO QDAY [facility] Last Admin: 06/13/20 09:38 Dose: 100 mg Documented by: Trazodone HCl (Desyrel) 50 mg PO QHS [facility] Last Admin: 06/13/20 21:39 Dose: 50 mg Documented by: Results - Results Labs/Vitals: Laboratory Last Values POC Glucose 112 mg/dL (70-105) H 06/05/20 22:43 TSH 0.057 mlU/mL (0.270-4.200) L 06/06/20 Unknown Coronavirus (PCR) Negative (Negative) 06/13/20 Unknown Last Vital Signs Temp 98.0 F 06/13/20 19:54 Pulse 62 06/13/20 19:54 Resp 18 06/13/20 19:54 BP 150/69 06/13/20 19:54 Pulse Ox 96 06/13/20 19:54
--- NOTE | 2020-06-14 09:05 | Discharge Summary ---
Providers - Providers Date of Admission: 06/05/20 20:11 Date of discharge: 06/14/20 Attending physician: INDIA CRYSTAL MD 06/05/20 16:28 Consult to Physician [CONS] Routine Comment: Consulting Provider: FRANCISCO HERNANDEZ Physician Instructions: Reason For Exam: manage medical conditions Primary care physician: [employer] INST[employer]ER Hospitalization Reason for admission: Danger to self, psychopathological interference Condition: Good Hospital course: The patient was provided inpatient psychiatric treatment with safe and supportive environment, group/individual therapy, psychiatric medication, medication adjustment, adverse effect monitor, medical evaluation, medical treatment, social service assessment, social support meeting, placement assessment and psycho-education. The patients mood, cognition, behavior, motivation, compliance to treatment and appreciation on family/social support are improved and stabilized. At the time of discharge, the patient had no suicidal ideas, no homicidal ideas, no aggressive thoughts, no endangering behavior and no debilitating adverse effects. The patient agareed on the treatment plan, understood the risk, benefit, alternative treatment, potential consequence of no treatment, and gave informed consent. Disposition: DC-01 TO HOME OR SELFCARE Allergies/Adverse Reactions: Allergies No Known Allergies Allergy (Unverified 09/12/18 03:50) Vital Signs: Last Vital Signs Temp 98.0 F 06/13/20 19:54 Pulse 62 06/13/20 19:54 Resp 18 06/13/20 19:54 BP 150/69 06/13/20 19:54 Pulse Ox 96 06/13/20 19:54 Last Lab: Laboratory Last Values POC Glucose 112 mg/dL (70-105) H 06/05/20 22:43 TSH 0.057 mlU/mL (0.270-4.200) L 06/06/20 Unknown Coronavirus (PCR) Negative (Negative) 06/13/20 Unknown - Discharge Diagnoses (1) Schizoaffective disorder Status: Acute Core Measure Documentation - Palliative Care Palliative Care/ Comfort Measures: Not Applicable - Core Measures Any of the following diagnoses?: none Exam - Constitutional Vitals: Temp Pulse Resp BP Pulse Ox 98.0 F 62 18 150/69 96 06/13/20 19:54 06/13/20 19:54 06/13/20 19:54 06/13/20 19:54 06/13/20 19:54 General appearance: Present: no acute distress - EENT Eyes: Present: PERRL, EOM intact ENT: hearing intact, clear oral mucosa - Neck Neck: Present: supple, normal ROM - Respiratory Respiratory effort: normal - Abdominal Male genitourinary: Present: deferred - Integumentary Integumentary: Present: clear, warm, dry Plan Activity: no restrictions Care Plan Goals: Goals: Maintain good and stable mental health. Plan of Treatment: The patient should be compliant with medications, not to use drugs and not to drink alcohol. The patient understands that if suicidal ideas, homicidal ideas, or any endangering thoughts arise, the patient should immediately seek for emergent assistance including but not limited to crisis hot line and emergency room. Follow up with outpatient Psychiatrist and PCP within 7 - 14 days of discharge. Follow up with: PRIMARY CARE,MD [Primary Care Provider] - 7 Days Prescriptions: Benztropine [Cogentin] 0.5 mg PO DAILY #[address] [Depakote Dr] 250 mg PO BID #60 tablet haloperidoL [Haldol] 5 mg PO BID #60 tablet Multivitamin Tab [Multiple Vitamin TAB (Theragran)] 1 each PO QDAY #30 tablet Thiamine [Vitamin B-1] 100 mg PO QDAY #30 tablet
[2020-06-14] MEDS: DIVALPROEX DR 250 MG TAB PO SCH (09:50)
[2020-06-14] MEDS: THIAMINE 100 MG TAB PO SCH (09:50)
[2020-06-14] MEDS: HALOPERIDOL 5 MG TAB PO SCH (09:50)
[2020-06-14] MEDS: FOLIC ACID 1 MG TAB PO SCH (09:50)
[2020-06-14] MEDS: BENZTROPINE 0.5 MG TAB PO SCH (09:50)
[2020-06-14] MEDS: MULTIVITAMINS ,THERAPEUTIC TAB PO SCH (09:50)
== END 2020-06-14 13:10 | disposition home or self-care (01) | DRG 885 ==
LOC: 3A 16:06 → UNDOADMIN 16:06 → 5A 20:11
PROVIDERS: ADMIT Psychiatry & Neurology Psychiatry; ATTEND Psychiatry & Neurology Psychiatry
DX: F20.9 Schizophrenia, unspecified (principal); R45.851 Suicidal ideations; F22 Delusional disorders; R03.0 Elevated blood-pressure reading, without diagnosis of hypertension; F10.20 Alcohol dependence, uncomplicated; Z59.0 Homelessness; Z79.899 Other long term (current) drug therapy; Z20.828 Contact with and (suspected) exposure to other viral communicable diseases
CPT/HCPCS: 71045; 82962; 84443; G0378; U0003

== ENCOUNTER 2020-06-27 07:11 | Emergency (ER) | payer MEDICARE ==
[2020-06-27 08:39] VITALS: BP 168/100
[2020-06-27 09:03] LABS: Basophils % (Auto) 0.7 % (0.0-1.8); Eosinophils # (Auto) 0.2 K/mm3 (0.0-0.4); Eosinophils % (Auto) 2.5 % (0.0-4.3); Hematocrit 42.8 % (35.5-45.6); Hemoglobin 14.8 gm/dl (11.8-15.2); Lymphocytes # (Auto) 1.9 K/mm3 (1.2-5.4); Lymphocytes % (Auto) 31.9 % (13.4-35.0); Mean Corpuscular HGB Conc 35 % (32-34); Mean Corpuscular Volume 90 fl (84-94); Monocytes # (Auto) 0.6 K/mm3 (0.0-0.8); Monocytes % (Auto) 9.5 % (0.0-7.3); Platelet Count 212 K/mm3 (140-440); Red Blood Count 4.78 M/mm3 (3.65-5.03); Red Cell Distribution Width 13.8 % (13.2-15.2)
[2020-06-27 11:20] LABS: BUN/Creatinine Ratio 11; Blood Urea Nitrogen 10 mg/dL (9-20)
[2020-06-27 11:21] LABS: Calcium 9.7 mg/dL (8.4-10.2); Hemolysis Index 12
== END 2020-06-27 19:00 | disposition left against medical advice (07) ==
LOC: ED 07:11
DX: F25.9 Schizoaffective disorder, unspecified (principal); Z53.21 Procedure and treatment not carried out due to patient leaving prior to being seen by health care provider
CPT/HCPCS: 36415; 80048; 80320; 85025; G0480

== ENCOUNTER 2021-10-27 20:30 | Emergency (ER) | payer OTHER, MEDICARE ==
[2021-10-27] MEDS ORDERED: TETANUS,DIPH,PERTUSS(ACELL) VACCINE 0.5 ML SYRINGE IM ONE (21:26)
[2021-10-27] MEDS ORDERED: ACETAMINOPHEN 325 MG TAB PO ONE (21:26)
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
[2021-10-27 22:52] VITALS: BP 165/81
== END 2021-10-27 22:50 ==
LOC: ED 20:30
DX: S09.90XA Unspecified injury of head, initial encounter (principal); S09.8XXA Other specified injuries of head, initial encounter; R04.0 Epistaxis; I10 Essential (primary) hypertension; F31.9 Bipolar disorder, unspecified; F17.200 Nicotine dependence, unspecified, uncomplicated; Y08.89XA Assault by other specified means, initial encounter; Y93.89 Activity, other specified; Y92.89 Other specified places as the place of occurrence of the external cause; Y99.8 Other external cause status
CPT/HCPCS: 70450; 70486; 90471; 90715; 99284